=== PATIENT | female | born 1975 | race Caucasian/White ===

== ENCOUNTER 2017-11-25 12:02 | Emergency (ER) | payer MEDICAID ==
--- NOTE | 2017-11-25 13:36 | EDPHY ---
H & P Stated Complaint: non traumatic bilat foot swelling/pain since last night Time Seen by Provider: 11/25/17 12:55 HPI/ROS: CHIEF COMPLAINT: Foot pain and swelling HISTORY OF PRESENT ILLNESS: 42-year-old female presents with foot pain and swelling. Yesterday she plays volleyball for 3 hr. She felt fine while playing and immediately afterwards. However yesterday evening, she developed pain in both her feet and had difficulty walking because the pain. Associated with moderate bilateral foot swelling. The swelling has resolved today, but continues to have pain on the bottom of the feet. 1 week ago she also had a episode of vertigo that lasted several hours. During the middle of the night, she lost vision in the right eye. She went back to sleep and when she awoke her vision was back to relatively normal. However since then she has a vague sense of motion sickness and change in her peripheral vision. No headache or recent head trauma. 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 This was followed for several months and remained stable on MRI. During that evaluation, she also had thrombocytosis and elevated liver enzymes of unclear etiology. REVIEW OF SYSTEMS: complete 10 point ROS reviewed and is negative except for the noted elements in the HPI - Personal History LMP (Females 10-55): 8-14 Days Ago - Medical/Surgical History Hx Asthma: No Hx Chronic Respiratory Disease: No Hx Diabetes: No Hx Cardiac Disease: No Hx Renal Disease: No Hx Cirrhosis: No Hx Alcoholism: No Hx HIV/AIDS: No Hx Splenectomy or Spleen Trauma: No Other PMH: Markie's thyroiditis - Social History Smoking Status: Never smoked - Physical Exam Exam: General Appearance: Alert, pleasant Eyes: Pupils equal and round, no conjunctival pallor or injection ENT, Mouth: Mucous membranes moist Neck: Normal inspection Respiratory: Lungs are clear to auscultation Cardiovascular: Regular rate and rhythm Gastrointestinal: Abdomen is soft and nontender Neurological: Alert, oriented x3, cranial nerves II through XII intact, motor 5 /5, sensory intact to light touch, normal gait. Skin: Warm and dry, no rash Extremities: Normal inspection, no swelling or erythema, tenderness on the sole of the foot adjacent to the arch; no tenderness or swelling of the lower leg Vascular: 2+ pedal pulses, capillary refill brisk Psychiatric: Mood and affect normal Constitutional: Initial Vital Signs Temperature (C) 36.7 C 11/25/17 12:10 Heart Rate 78 11/25/17 12:10 Respiratory Rate 16 11/25/17 12:10 Blood Pressure 114/72 11/25/17 12:10 O2 Sat (%) 97 11/25/17 12:10 O2 Delivery Mode Room Air Allergies/Adverse Reactions: No Known Allergies Allergy (Verified 11/25/17 12:09) Home Medications: Medication Instructions Recorded NK [No Known Home Meds] 03/16/13 Medical Decision Making - Diagnostics Imaging Results: Imaging Impressions Brain MRI 11/25/17 13:33 Impression: Stable normal brain. Results discussed with Dr. Debora Adler at 3:52 PM Imaging: Discussed imaging studies w/ bingo caller Radiologist, I viewed and interpreted images myself ED Course/Re-evaluation: This patient presents with atraumatic bilateral foot pain and swelling, with a normal foot exam. Imaging is not indicated. She also presents with vertigo and transient loss of vision. She has history of multiple neurologic symptoms of unclear etiology. MRI of the brain today is unremarkable. Laboratory tests are unremarkable today, including normal LFTs and normal platelets. I feel that she is safe and stable for discharge home. She will follow up with Dr. Duncan and with her primary care physician. Differential Diagnosis: Differential diagnosis for vertigo includes TIA, stroke, intracranial hemorrhage , tumor, electrolyte abnormality and acute labyrinthitis. Differential for foot pain and swelling includes fracture, dislocation, neurovascular compromise , infection, foreign body. - Data Points Laboratory Results: Laboratory Results 11/25/17 14:07 11/25/17 14:07 11/25/17 11/25/17 14:07 14:07 WBC 4.67 10^3/uL 10^3/uL (3.80-9.50) RBC 4.60 10^6/uL 10^6/uL (4.18-5.33) Hgb 14.7 g/dL g/dL (12.6-16.3) Hct 43.9 % % (38.0-47.0) MCV 95.4 fL fL (81.5-99.8) MCH 32.0 pg pg (27.9-34.1) MCHC 33.5 g/dL g/dL (32.4-36.7) RDW 11.8 % % (11.5-15.2) Plt Count 382 10^3/uL 10^3/uL (150-400) MPV 8.4 fL L fL (8.7-11.7) Neut % (Auto) 65.8 % % (39.3-74.2) Lymph % (Auto) 26.8 % % (15.0-45.0) [place] % (Auto) 6.2 % % (4.5-13.0) Eos % (Auto) 0.4 % L % (0.6-7.6) Baso % (Auto) 0.6 % % (0.3-1.7) Nucleat RBC Rel Count 0.0 % % (0.0-0.2) Absolute Neuts (auto) 3.07 10^3/uL 10^3/uL (1.70-6.50) Absolute Lymphs (auto) 1.25 10^3/uL 10^3/uL (1.00-3.00) Absolute Monos (auto) 0.29 10^3/uL L 10^3/uL (0.30-0.80) Absolute Eos (auto) 0.02 10^3/uL L 10^3/uL (0.03-0.40) Absolute Basos (auto) 0.03 10^3/uL 10^3/uL (0.02-0.10) Absolute Nucleated RBC 0.00 10^3/uL 10^3/uL (0-0.01) Immature Gran % 0.2 % % (0.0-1.1) Immature Gran # 0.01 10^3/uL 10^3/uL (0.00-0.10) Sodium 140 mEq/L mEq/L (135-145) Potassium 4.3 mEq/L mEq/L (3.3-5.0) Chloride 101 mEq/L mEq/L (97-110) Carbon Dioxide 29 mEq/l mEq/l (22-31) Anion Gap 10 mEq/L mEq/L (6-14) BUN 13 mg/dL mg/dL (7-23) Creatinine 0.7 mg/dL mg/dL (0.6-1.0) Estimated GFR > 60 Glucose 99 mg/dL mg/dL (70-100) Calcium 10.0 mg/dL mg/dL (8.5-10.4) Total Bilirubin 0.3 mg/dL mg/dL (0.1-1.4) Conjugated Bilirubin 0.1 mg/dL mg/dL (0.0-0.5) Unconjugated Bilirubin 0.2 mg/dL mg/dL (0.0-1.1) AST 31 IU/L IU/L (14-46) ALT 28 IU/L IU/L (9-52) Alkaline Phosphatase 66 IU/L IU/L (38-126) Total Protein 7.8 g/dL g/dL (6.3-8.2) Albumin 4.6 g/dL g/dL (3.5-5.0) TSH 1.150 uIU/mL uIU/mL (0.465-4.680) Departure - Departure Disposition: Home, Routine, Self-Care Clinical Impression: Swollen feet, Vertigo Condition: Good Instructions: Vertigo (ED), Leg Edema (ED) Additional Instructions: Your blood tests, including liver function testing, are normal today. The MRI of your brain is normal. Please follow-up with a neurologist regarding the vertigo and loss of vision. Please follow-up with a senior credit officer regarding the pain and swelling in your feet. Referrals: Aracely Cortes MD [Primary Care Provider] - As per Instructions Óscar Duncan DO [Medical Doctor] - As per Instructions (Call to make an appointment.)
[2017-11-25 14:14] LABS: PLATELET COUNT 382 10^3/uL (150-400)
[2017-11-25 15:50] VITALS: BP 105/62
== END 2017-11-25 16:28 | disposition home or self-care (01) ==
DX: R22.43 Localized swelling, mass and lump, lower limb, bilateral (principal); R42 Dizziness and giddiness